=== PATIENT | male | born 1980 | race Caucasian/White ===

== ENCOUNTER 2025-02-24 01:51 | Emergency (ER) | payer OTHER ==
[~2025-02-24] VITALS: Ht 195.6 cm; Wt 93.0 kg
[2025-02-24] MEDS ORDERED: Fluorescein Sod 1MG Opth Strips LEFTEYE SCH (02:40)
[2025-02-24] MEDS ORDERED: Tetracaine HCl/Pf 0.5% Opth Soln 4 ml LEFTEYE SCH (02:40)
== END 2025-02-24 03:05 | disposition home or self-care (01) ==
LOC: ER 01:51
DX: T15.91XA Foreign body on external eye, part unspecified, right eye, initial encounter (principal)
CPT/HCPCS: 99283; A9270